=== PATIENT | female | born 1995 | race Caucasian/White ===

== ENCOUNTER 2017-05-24 08:44 | Inpatient (IN) ==
[2017-05-24 09:26] LABS: BILIRUBIN URINE NEGATIVE (NEGATIVE); BLOOD URINE NEGATIVE (NEGATIVE); CLARITY CLEAR (CLEAR); COLOR YELLOW; GLUCOSE URINE NEGATIVE (NEGATIVE); LEUKOCYTES URINE TRACE (NEGATIVE); NITRITE URINE NEGATIVE (NEGATIVE); PH URINE 6.5; PROTEIN URINE TRACE mg/dL (NEGATIVE); URINE SOURCE VOIDED; UROBILINOGEN URINE 4+(12 mg/dL)
[2017-05-24] MEDS ORDERED: KEFZOL 1 GM/D5W 1 GM/50 ML IVPB IV PRN (10:30)
[2017-05-24] MEDS ORDERED: BRETHINE SUBQ PRN (10:30)
[2017-05-24] MEDS ORDERED: CYTOTEC PO ONE (10:30)
[2017-05-24] MEDS ORDERED: AMBIEN PO PRN ×2 (10:30→18:14)
[2017-05-24] MEDS ORDERED: PITOCIN 30 UNITS/LR 30 UNITS/500 ML IV.SOLN IV SCH (10:30)
[2017-05-24] MEDS ORDERED: STADOL IV PRN ×3 (10:30)
[2017-05-24] MEDS ORDERED: LR 1,000 ML IV ONE (10:30)
[2017-05-24] MEDS ORDERED: ZOFRAN IV PRN (10:30)
[2017-05-24] MEDS ORDERED: PEPCID IV PRN (10:30)
[2017-05-24] MEDS ORDERED: PEPCID PO ONE (10:30)
[2017-05-24] MEDS ORDERED: PEPCID PO PRN (10:30)
[2017-05-24] MEDS ORDERED: REGLAN PO ONE (10:30)
[2017-05-24] MEDS ORDERED: TYLENOL PO PRN (10:30)
[2017-05-24 11:53] LABS: BASO% 0.2 % (0.0-0.8); EOS# 0.02 X1000 (0.0-0.7); EOS% 0.2 % (0.0-10.0); HEMATOCRIT 33.4 % (37.0-47.0); HEMOGLOBIN 11.1 g/dL (12.0-16.0); IMM GRAN# 0.07 X1000 (0.0-0.04); IMM GRAN% 0.7 % (0.0-0.5); LYMPH# 1.75 X1000 (1.2-3.4); LYMPH% 16.4 % (20.5-51.1); MANUAL DIFF NEEDED? YES; MCH 31.4 PG (27-31); MCHC 33.2 g/dL (33-37); MCV 94.6 FL (81-99); MONO# 0.94 X1000 (0.11-0.59); MONO% 8.8 % (1.7-9.3); MPV 13.3 FL (7.4-10.4); NEUT% 73.7 % (42.2-75.2); PLT 127 X1000 (130-400); RBC 3.53 XMIL (4.2-5.4)
[2017-05-24 12:11] LABS: LYMPHS 11 % (21-51); MONO 3 % (1-9)
[2017-05-24] MEDS ORDERED: CYTOTEC PO SCH (14:30)
[2017-05-24] MEDS: LR 1,000 ML ONE ×2 (14:49→15:43)
[2017-05-24] MEDS ORDERED: FENTANYL-BUPIV-NS 2 MCG-0.1% 200 ML EPIDURAL SCH (15:00)
[2017-05-24] MEDS ORDERED: NAROPIN 0.2% ONE (15:17)
[2017-05-24] MEDS ORDERED: SODIUM CHLORIDE 0.9% 10 ML ONE (15:46)
[2017-05-24] MEDS ORDERED: EPHEDRINE ONE (15:46)
[2017-05-24] MEDS ORDERED: MINERAL OIL TOP ONE (16:19)
[2017-05-24] MEDS ORDERED: EPHEDRINE IV ONE (16:19)
[2017-05-24] MEDS ORDERED: XYLOCAINE-MPF 1% INJ ONE (16:20)
[2017-05-24] MEDS ORDERED: KEFZOL 1 GM/D5W 1 GM/50 ML IVPB IV ONE ×2 (17:32→19:19)
[2017-05-24] MEDS ORDERED: BENADRYL IV PRN (18:14)
[2017-05-24] MEDS ORDERED: HYDROXYZINE PO PRN (18:14)
[2017-05-24] MEDS ORDERED: BOOSTRIX VACCINE IM ONE (18:14)
[2017-05-24] MEDS ORDERED: XYLOCAINE-MPF 1% INJ PRN (18:14)
[2017-05-24] MEDS ORDERED: M-M-R II VACCINE SUBQ ONE (18:14)
[2017-05-24] MEDS ORDERED: NORCO-10 PO PRN (18:14)
[2017-05-24] MEDS ORDERED: CYTOTEC PO PRN (18:14)
[2017-05-24] MEDS ORDERED: PITOCIN 30 UNITS/LR 30 UNITS/500 ML IV.SOLN IV ONE (18:14)
[2017-05-24] MEDS ORDERED: BENADRYL PO PRN (18:14)
[2017-05-24] MEDS ORDERED: MINERAL OIL PO PRN (18:14)
[2017-05-24] MEDS ORDERED: HYDROXYZINE IM PRN (18:14)
[2017-05-24] MEDS ORDERED: PERCOCET-10 PO PRN (18:14)
[2017-05-24] MEDS ORDERED: PITOCIN 20 UNITS/LR 20 UNITS/1,000 ML IV.SOLN IV SCH (18:14)
[2017-05-24] MEDS ORDERED: NORCO-5 PO PRN (18:14)
[2017-05-24] MEDS ORDERED: PERCOCET-5 PO PRN (18:14)
[2017-05-24] MEDS ORDERED: PITOCIN IM PRN (18:14)
[2017-05-24] MEDS ORDERED: PERI MEDS (DERMOPLAST/NUPERCAINAL/TUCKS) MISC PRN (18:14)
--- NOTE | 2017-05-24 18:24 | OPERATIVE NOTE ---
PROCEDURE DATE: 05/24/2017 DELIVERING PHYSICIAN: Jose Valenzuela MD TYPE OF DELIVERY: Vaginal delivery with outlet forceps. ANESTHESIA: Epidural. FINDINGS: At 1719, a 7 pound 14 ounce male infant was delivered in occiput posterior presentation with outlet forceps. Apgars were 4 at 1 minute and 6 at 5 minutes and then at 10 minutes the Apgars were 9. SUMMARY: Mary Wilkerson is a 21-year-old primigravida at 39-1/2 weeks gestation. Her blood type is A positive. Rubella immune. Hepatitis B surface antigen, HIV, and group B strep are negative. She has had an uncomplicated . She presented to Labor and Delivery this morning reporting spontaneous rupture of membranes that occurred at approximately 7 a.m. On examination, she was fingertip dilated. An ultrasound was performed which confirmed vertex presentation. We made a decision to use Cytotec. She received 1 dose of Cytotec and began laboring. She received an epidural for labor pain management. After the epidural, she did have some decelerations. They responded to IV fluids and blood pressure support. She continued to progress through labor rapidly. She became complete and began pushing. Very soon with pushing, she began having prolonged bradycardic episode that continued in spite of intrauterine resuscitation. The infant was at a +1 station. A decision was made to expedite delivery. I felt that the forceps delivery would occur quicker than a section. I attempted to put on the vacuum forceps. However, we could not get a good seal due to the amount of hair on the baby's head. We therefore applied Sammy Landon forceps at a +1 station. Episiotomy was performed. heart tones remained below 90. With the patient pushing and gentle traction, the 's head was delivered in occiput posterior presentation. The shoulders were delivered without dystocia, the nuchal cord x2 was reduced. The cord was clamped and cut, and the was handed to the nurses for further care and evaluation. Cord blood was obtained. Placenta was spontaneously delivered and was intact. There was a 4th degree extension that was repaired in layers using 2-0 Vicryl suture. Blood loss was approximately 250 mL. Patient remained in the LDR recovering without difficulty. cc: Jose Valenzuela MD
[2017-05-24] MEDS: MOTRIN PO PRN (20:35)
[2017-05-24] MEDS ORDERED: PITOCIN ONE (20:38)
[2017-05-24] MEDS ORDERED: PERICOLACE PO SCH (21:00)
[2017-05-25] MEDS: LAMICTAL PO SCH ×5 (00:02→22:32)
[2017-05-25 06:50] LABS: HEMATOCRIT 28.4 % (37.0-47.0); HEMOGLOBIN 9.3 g/dL (12.0-16.0); MCH 31.3 PG (27-31); MCHC 32.7 g/dL (33-37); MCV 95.6 FL (81-99); MPV 13.7 FL (7.4-10.4); RBC 2.97 XMIL (4.2-5.4)
[2017-05-25] MEDS: MOTRIN PO PRN (09:38)
[2017-05-25] MEDS ORDERED: EPIFOAM FOAM TOP PRN (18:21)
[2017-05-26] MEDS: LAMICTAL PO SCH ×2 (09:13→12:20)
[2017-05-26 12:06] VITALS: BP 121/66
--- NOTE | 2017-05-27 13:30 | DISCHARGE SUMMARY ---
ADMISSION DATE: 05/24/2017 DISCHARGE DATE: 05/26/2017 ADMITTING DIAGNOSES: 1. Term . 2. Spontaneous rupture of membranes. 3. Active labor. DISCHARGE DIAGNOSES: 1. Term . 2. Spontaneous rupture of membranes. 3. Active labor. CONDITION: Stable. DIET: As tolerated. ACTIVITY: Routine . She is to have [place] 5 for pain. [id number] nonsteroidals for cramping. Nmaf-tat-eoeccya stool softeners and she is to continue vitamins. Please refer to Ms. Wilkerson's records and delivery note. She presented with spontaneous rupture of membranes. She had a successful vaginal delivery that day and has done well afterwards and is without complaints desiring discharge. PHYSICAL EXAMINATION: Vital Signs: Stable. She is afebrile. She is alert and cooperative, no distress. Neck: Supple. Lungs: Clear. Heart: Regular sinus rhythm. Abdomen: Distended. Uterus is firm nontender. No cyanosis, clubbing, edema in her extremities. LABS: Hemoglobin 9.3. We will discharge with above instructions. cc: MD Jose Bearden MD
== END 2017-05-26 17:25 | disposition home or self-care (01) ==
LOC: P.OPLD 08:44 → P.LD 08:48 → P.WC 15:13 → P.LD 16:01 → P.WC 21:58
PROVIDERS: ADMIT Obstetrics & Gynecology; ATTEND Obstetrics & Gynecology